=== PATIENT | male | born 1995 | race Caucasian/White ===

== ENCOUNTER 2020-05-02 22:10 | Emergency (ER) | payer OTHER ==
[~2020-05-02] VITALS: Ht 185.4 cm; Wt 59.0 kg
[2020-05-02 23:01] LABS: URINE BLOOD NEGATIVE (Negative); URINE CLARITY CLEAR; URINE COLOR YELLOW; URINE GLUCOSE-RANDOM NEGATIVE (Negative); URINE KETONES NEGATIVE (Negative); URINE LEUKOCYTES-REFLEX NEGATIVE (Negative); URINE NITRITE-REFLEX NEGATIVE (Negative); URINE PROTEIN TRACE (Negative); URINE SPECIFIC GRAVITY >= 1.030 (1.005-1.030); URINE UROBILINOGEN 0.2 E.U./dl (0.2-1.0)
[2020-05-02 23:02] LABS: ICTOTEST (BILI CONFIRMATORY) Negative (Negative); URINE BILIRUBIN 1+ (Negative)
[2020-05-02 23:16] LABS: ABSOLUTE BASOPHILS 0.1 thou/uL (0.0-0.2); ABSOLUTE EOSINOPHILS 0.1 thou/uL (0.0-0.7); ABSOLUTE LYMPHOCYTES 1.7 thou/uL (0.8-5.3); ABSOLUTE MONOCYTES 0.6 thou/uL (0.0-1.2); ABSOLUTE NEUTROPHILS 3.7 thou/uL (1.6-8.1); BASOPHILS 1.1 %; HEMATOCRIT 43.3 % (42.0-52.0); HEMOGLOBIN 15.6 gm/dL (14.0-18.0); LYMPHOCYTES 27.1 %; MCH 33.1 pg (26.0-34.0); MCHC 35.9 g/dL (28.0-37.0); MCV 92.1 fL (80.0-100.0); MPV 7.3 fl. (7.2-11.1); NUCLEATED RBCS 0 /100WBC; PLATELET COUNT* 316 thou/uL (150-400); POLYS 60.8 %; RDW-CV 12.3 % (10.5-14.5); WBC 6.1 thou/uL (4.0-11.0)
[2020-05-02 23:23] LABS: CALCIUM 9.3 mg/dL (8.5-10.1); CREATININE 1.1 mg/dL (0.6-1.3); POTASSIUM 3.7 mmol/L (3.5-5.1)
[2020-05-02 23:27] LABS: ALBUMIN 4.9 g/dL (3.4-5.0); TOTAL BILIRUBIN 0.7 mg/dL (<0.1-1.0); TOTAL PROTEIN 8.4 g/dL (6.4-8.2)
[2020-05-03] MEDS ORDERED: ZOFRAN ODT4 MG PO (01:34)
[2020-05-03 01:49] VITALS: BP 112/73
== END 2020-05-03 01:49 | disposition home or self-care (01) ==
LOC: M.ERS 22:10
PROVIDERS: Personal Emergency Response Attendant
DX: K52.9 Noninfective gastroenteritis and colitis, unspecified (principal)

== ENCOUNTER 2021-04-09 13:12 | Emergency (ER) | payer OTHER ==
[~2021-04-09] VITALS: Ht 185.4 cm; Wt 61.2 kg
[~2021-04-09 13:12] MED LIST: ZOFRAN ODT4 MG PO
[2021-04-09] MEDS ORDERED: BACTRIM DS TAB1 EACH PO (13:48)
[2021-04-09] MEDS ORDERED: CEPHALEXIN500 MG PO (13:48)
[2021-04-09] MEDS ORDERED: HYDROCODON-ACE1 EAC7 PO (14:06)
[2021-04-09 14:35] VITALS: BP 122/64
== END 2021-04-09 14:36 | disposition home or self-care (01) ==
LOC: M.ERS 13:12
DX: L60.0 Ingrowing nail (principal); L03.031 Cellulitis of right toe

== ENCOUNTER 2021-06-08 11:52 | Emergency (ER) | payer OTHER ==
[~2021-06-08] VITALS: Ht 182.9 cm; Wt 61.2 kg
[~2021-06-08 11:52] MED LIST changes: +BACTRIM DS TAB1 EACH PO; +CEPHALEXIN500 MG PO; +HYDROCODON-ACE1 EAC7 PO
[2021-06-08] MEDS ORDERED: ZOFRAN ODT4 MG DISSOLVE (12:11)
[2021-06-08 12:45] VITALS: BP 126/83
== END 2021-06-08 12:46 | disposition home or self-care (01) ==
LOC: M.ERS 11:52
DX: R11.15 Cyclical vomiting syndrome unrelated to migraine (principal); R06.02 Shortness of breath